=== PATIENT | female | born 1990 | race African-American/Black ===

== ENCOUNTER 2017-04-28 00:55 | Inpatient (IN) | payer BC ==
[2017-04-28] MEDS ORDERED: Butorphanol 1 MG/ML SDV IVPUSH PRN (01:21)
[2017-04-28] MEDS ORDERED: Water For Irrigation,Sterile 1,000 ML Container IRR PRN (01:21)
[2017-04-28] MEDS ORDERED: Lidocaine 1% 50 ML MDV INJECT PRN (01:21)
[2017-04-28] MEDS ORDERED: Nalbuphine 10 MG/1 ML Vial IVPUSH PRN (01:21)
[2017-04-28] MEDS ORDERED: Carboprost Tromethamine 250 MCG/1 ML Amp IM PRN (01:21)
[2017-04-28] MEDS ORDERED: Sodium Chloride 0.9% 2.5 ML Syringe FLUSH PRN (01:21)
[2017-04-28] MEDS ORDERED: Misoprostol 200 MCG Tab PO PRN (01:21)
[2017-04-28] MEDS ORDERED: Methylergonovine 0.2 MG/1 ML Amp IM PRN (01:21)
[2017-04-28] MEDS ORDERED: Sodium Chloride 0.9% 10 ML Syringe FLUSH PRN (01:21)
[2017-04-28] MEDS ORDERED: Terbutaline 1 MG/ML SDV SUBCUT PRN (01:23)
[2017-04-28] MEDS ORDERED: Misoprostol 25 MCG (1/4 of 100 MCG) Tab VAG PRN (01:23)
[2017-04-28] MEDS ORDERED: Misoprostol 25 MCG (1/4 of 100 MCG) Tab PO ONE (01:25)
[2017-04-28] MEDS ORDERED: Misoprostol 25 MCG (1/4 of 100 MCG) Tab VAG SCH (01:30)
[2017-04-28] MEDS: Lactated Ringers 1,000 ML IV SCH ×4 (08:24→23:00)
--- NOTE | 2017-04-28 08:27 | PCM.LDHP ---
L&D History of Present Illness - General Date of Service: 04/28/17 Admit Problem/Dx: Patient Status Order with Admit Dx/Problem 04/28/17 01:21 Patient Status [ADT] Routine Admission Diagnosis/Problem Admission Diagnosis/Problem 04/28/17 08:22 26yo EDC 05/02/2017 39 4/7wks B+, RI, GBS neg, Hep B pos chronic. IOL Source of Information: Patient History Limitations: Reports: No Limitations - History of Present Illness Improves with: Reports: None Worsens with: Reports: None Associated Symptoms: Reports: N - Related Data Allergies/Adverse Reactions: Allergies Allergy/AdvReac Type Severity Reaction Status Date / Time No Known Allergies Allergy Verified 12/22/14 22:08 Home Medications: Home Meds Ibuprofen [Motrin] 800 mg PO Q6H #60 tablet 10/20/15 [Rx] Past Medical History - Past Health History Medical/Surgical History: Denies Medical/Surgical History Cardiovascular History: Reports: Other (See Below) Other Cardiovascular History: heart disease pt does not know what type possible "fast heart rate at times" Other OB/BYN History: breech, arrives having contractions, will await arrival of middleware developer to hear if the plan is to continue with scheduled attempt at version, or to preceed with a C section. - Infectious Disease History Infectious Disease History: Reports: Chicken Pox, Hepatitis B, Mumps Social & Family History - Tobacco Use Smoking Status *Q: Never Smoker Second Hand Smoke Exposure: No - Caffeine Use Caffeine Use: Reports: None - Recreational Drug Use Recreational Drug Use: No H&P Review of Systems - Review of Systems: Review Of Systems: See Below General: Reports: No Symptoms HEENT: Reports: No Symptoms Pulmonary: Reports: No Symptoms Cardiovascular: Reports: No Symptoms Gastrointestinal: Reports: No Symptoms Genitourinary: Reports: No Symptoms Musculoskeletal: Reports: No Symptoms Skin: Reports: No Symptoms Psychiatric: Reports: No Symptoms Neurological: Reports: No Symptoms Hematologic/Lymphatic: Reports: No Symptoms Immunologic: Reports: No Symptoms L&D Exam - Exam Exam: See Below - Vital Signs Weight: 122.47 kg - Nunez Score Nunez Score Cervix Position: Anterior Nunez Score Consistency: Soft Nunez Score Effacement: 51-70% Nunez Score Dilation: 3-4 cm Nunez Score Infant's Station: -2 Nunez Score Total: 9 - Exam General: Alert, Oriented, Cooperative HEENT: Hearing Intact Lungs: Normal Respiratory Effort GI/Abdominal Exam: Soft, Non-Tender, No Organomegaly (gravid) Rectal Exam: Deferred Genitourinary: Normal external exam, Normal bimanual exam, Cervical dilitation Back Exam: Full Range of Motion Extremities: Normal Range of Motion, Non-Tender, No Pedal Edema, Normal Capillary Refill Skin: Warm, Dry, Intact Neurological: Reflexes Equal Bilateral, Normal Speech, Normal Tone Psychiatric: Alert, Normal Affect, Normal Mood - Patient Data Lab Results Last 24 hrs: Laboratory Results - last 24 hr 04/28/17 04/28/17 Range/Units 01:40 01:40 WBC 5.63 (4.0-11.0) K/uL RBC 3.71 L (4.30-5.90) M/uL Hgb 10.0 L (12.0-16.0) g/dL Hct 30.5 L (36.0-46.0) % MCV 82.2 (80.0-98.0) fL MCH 27.0 (27.0-32.0) pg MCHC 32.8 (31.0-37.0) g/dL RDW Std Deviation 39.1 (28.0-62.0) fl RDW Coeff of Delmer 13 (11.0-15.0) % Plt Count 243 (150-400) K/uL MPV 9.60 (7.40-12.00) fL Nucleated RBC % 0.0 /100WBC Nucleated RBCs # 0 K/uL Blood Type B POSITIVE Antibody Screen NEGATIVE Result Diagrams: 04/28/17 01:40 - Problem List (1) Supervision of normal IUP (intrauterine ) in multigravida SNOMED Code(s): 956097775, 097239639 ICD Code: Z34.80 - ENCOUNTER FOR SUPRVSN OF NORMAL , UNSP TRIMESTER Status: Acute Priority: High Current Visit: Yes Qualifiers: Trimester: third trimester Qualified Code(s): Z34.83 - Encounter for supervision of other normal , third trimester (2) Chronic hepatitis B affecting antepartum care of mother in third trimester SNOMED Code(s): 545267781 ICD Code: O98.413 - VIRAL HEPATITIS COMPLICATING , THIRD TRIMESTER; B18.1 - CHRONIC VIRAL HEPATITIS B WITHOUT DELTA-AGENT Status: Acute Priority : High Current Visit: Yes Problem List Initiated/Reviewed/Updated: Yes Orders Last 24hrs: Active Orders 24 hr Category Date Time Status Patient Status [ADT] Routine ADT 04/28/17 01:21 Active Bedrest Bathroom Privileges [RC] ASDIRECTED Care 04/28/17 01:23 Active Communication Order [RC] ASDIRECTED Care 04/28/17 01:23 Active Communication Order [RC] ASDIRECTED Care 04/28/17 01:23 Active Communication Order [RC] ASDIRECTED Care 04/28/17 01:23 Active Heart Tones [RC] CONTINUOUS Care 04/28/17 01:21 Active Non Stress Test [RC] PER UNIT ROUTINE Care 04/28/17 01:21 Active May Shower [RC] ASDIRECTED Care 04/28/17 01:21 Active Notify Provider [RC] PRN Care 04/28/17 01:21 Active Notify Provider [RC] PRN Care 04/28/17 01:23 Active Notify Provider [RC] PRN Care 04/28/17 01:23 Active Notify Provider [RC] STAT Care 04/28/17 01:23 Active Oxygen Therapy [RC] ASDIRECTED Care 04/28/17 01:23 Active Up ad Roma [RC] ASDIRECTED Care 04/28/17 01:21 Active Vaginal Exam [RC] PRN Care 04/28/17 01:21 Active Vaginal Exam [RC] PRN Care 04/28/17 01:23 Active Vital Signs [RC] PER UNIT ROUTINE Care 04/28/17 01:21 Active Vital Signs [RC] PER UNIT ROUTINE Care 04/28/17 01:23 Active Clear Liquid Diet [DIET] Diet 04/28/17 Breakfast Active Butorphanol [Stadol] Med 04/28/17 01:21 Active 1 mg IVPUSH Q1H PRN Carboprost Tromethamine [Hemabate DS] Med 04/28/17 01:21 Active 250 mcg IM ASDIRECTED PRN Lactated Ringers [Ringers, Lactated] 1,000 ml Med 04/28/17 01:30 Active IV ASDIRECTED Lidocaine 1% [Xylocaine 1%] Med 04/28/17 01:21 Active 50 ml INJECT .ONCE PRN Methylergonovine [Methergine] Med 04/28/17 01:21 Active 0.2 mg IM ASDIRECTED PRN Misoprostol [Cytotec] Med 04/28/17 01:21 Active 200 mcg PO .ONCE PRN Misoprostol [Cytotec] Med 04/28/17 01:30 Active 25 mcg VAG .ONCE Misoprostol [Cytotec] Med 04/28/17 01:23 Active 25 mcg VAG Q4H PRN Nalbuphine [Nubain] Med 04/28/17 01:21 Active 10 mg IVPUSH Q1H PRN Sodium Chloride 0.9% [Saline Flush] Med 04/28/17 01:21 Active 10 ml FLUSH ASDIRECTED PRN Sodium Chloride 0.9% [Saline Flush] Med 04/28/17 01:21 Active 2.5 ml FLUSH ASDIRECTED PRN Terbutaline [Brethine] Med 04/28/17 01:23 Active 0.25 mg SUBCUT ASDIRECTED PRN Water For Irrigation,Sterile [Sterile Water for Med 04/28/17 01:21 Active Irrigation] 1,000 ml IRR ASDIRECTED PRN Scalp Electrode [WOMSER] Per Unit Routine Oth 04/28/17 01:21 Ordered Medication Administration Instruction [OM.PC] Q3H Oth 04/28/17 01:30 Ordered Peripheral IV Insertion Adult [OM.PC] Routine Oth 04/28/17 01:21 Ordered Resuscitation Status Routine Resus Stat 04/28/17 01:21 Ordered Medication Orders Butorphanol Tartrate (Stadol) 1 mg IVPUSH Q1H PRN PRN Reason: Pain Carboprost Tromethamine (Hemabate Ds) 250 mcg IM ASDIRECTED PRN PRN Reason: Post Hemorrhage Lactated Ringer's (Ringers, Lactated) 1,000 mls @ 150 mls/hr IV ASDIRECTED ARABELLA Lidocaine HCl (Xylocaine 1%) 50 ml INJECT .ONCE PRN PRN Reason: Laceration repair Methylergonovine Maleate (Methergine) 0.2 mg IM ASDIRECTED PRN PRN Reason: Post Hemorrhage Misoprostol (Cytotec) 200 mcg PO .ONCE PRN PRN Reason: Post Hemorrhage Misoprostol (Cytotec) 25 mcg VAG .ONCE ARABELLA Last Admin: 04/28/17 02:42 Dose: 25 mcg Misoprostol (Cytotec) 25 mcg VAG Q4H PRN PRN Reason: Cervical Ripening Nalbuphine HCl (Nubain) 10 mg IVPUSH Q1H PRN PRN Reason: Pain (severe 7-10) Sodium Chloride (Saline Flush) 10 ml FLUSH ASDIRECTED PRN PRN Reason: Keep Vein Open Sodium Chloride (Saline Flush) 2.5 ml FLUSH ASDIRECTED PRN PRN Reason: Keep Vein Open Sterile Water (Sterile Water For Irrigation) 1,000 ml IRR ASDIRECTED PRN PRN Reason: delivery Terbutaline Sulfate (Brethine) 0.25 mg SUBCUT ASDIRECTED PRN PRN Reason: Tacysystole Assessment/Plan Comment:: IOL A: 26yo EDC 05/02/2017 39 4/7wks B+, RI, GBS neg, Hep B pos chronic. IOL P: Admit to L&D, epidural prn, Dr León (Peds) updated on Hep B chronic status, anticipate . Dr Freeman updated on pt status.
[2017-04-28] MEDS ORDERED: Ropivacaine HCl/PF 100 ML ONE ×2 (08:42→19:01)
[2017-04-28] MEDS ORDERED: Ropivacaine 0.2% 2 MG/ML 20 ML SDV ONE (08:42)
[2017-04-28] MEDS ORDERED: fentaNYL 100 MCG/2 ML SDV ONE ×3 (08:43→21:13)
--- NOTE | 2017-04-28 09:30 | PCM.PREANE ---
Preanesthetic Assessment - Anesthesia/Transfusion/Family Hx Anesthesia History: Prior Anesthesia Without Reaction Family History of Anesthesia Reaction: No Transfusion History: No Prior Transfusion(s) - Review of Systems General: No Symptoms Pulmonary: No Symptoms Cardiovascular: No Symptoms Gastrointestinal: No Symptoms Neurological: No Symptoms Other: Reports: None - Physical Assessment Height: 1.63 m Weight: 122.47 kg ASA Class: 2 Mental Status: Alert & Oriented x3 Airway Class: Mallampati = 3 Dentition: Reports: Normal Dentition - Lab Values: Laboratory Last Values WBC 5.63 K/uL (4.0-11.0) 04/28/17 01:40 RBC 3.71 M/uL (4.30-5.90) L 04/28/17 01:40 Hgb 10.0 g/dL (12.0-16.0) L 04/28/17 01:40 Hct 30.5 % (36.0-46.0) L 04/28/17 01:40 MCV 82.2 fL (80.0-98.0) 04/28/17 01:40 MCH 27.0 pg (27.0-32.0) 04/28/17 01:40 MCHC 32.8 g/dL (31.0-37.0) 04/28/17 01:40 RDW Std Deviation 39.1 fl (28.0-62.0) 04/28/17 01:40 RDW Coeff of Delmer 13 % (11.0-15.0) 04/28/17 01:40 Plt Count 243 K/uL (150-400) 04/28/17 01:40 MPV 9.60 fL (7.40-12.00) 04/28/17 01:40 Nucleated RBC % 0.0 /100WBC 04/28/17 01:40 Nucleated RBCs # 0 K/uL 04/28/17 01:40 Blood Type B POSITIVE 04/28/17 01:40 Antibody Screen NEGATIVE 04/28/17 01:40 - Allergies Allergies/Adverse Reactions: Allergies Allergy/AdvReac Type Severity Reaction Status Date / Time No Known Allergies Allergy Verified 12/22/14 22:08 - Acknowledgements Anesthesia Type Planned: Epidural Pt an Appropriate Candidate for the Planned Anesthesia: Yes Alternatives and Risks of Anesthesia Discussed w Pt/Guardian: Yes Pt/Guardian Understands and Agrees with Anesthesia Plan: Yes PreAnesthesia Questionnaire - Past Health History Medical/Surgical History: Denies Medical/Surgical History Cardiovascular History: Reports: Other (See Below) Other Cardiovascular History: heart disease pt does not know what type possible "fast heart rate at times" Other OB/BYN History: breech, arrives having contractions, will await arrival of conduit reamer operator to hear if the plan is to continue with scheduled attempt at version, or to preceed with a C section. - Infectious Disease History Infectious Disease History: Reports: Chicken Pox, Hepatitis B, Mumps - SUBSTANCE USE Smoking Status *Q: Never Smoker Second Hand Smoke Exposure: No Recreational Drug Use History: No - HOME MEDS Home Medications: Home Meds Ibuprofen [Motrin] 800 mg PO Q6H #60 tablet 10/20/15 [Rx] - CURRENT (IN HOUSE) MEDS Current Meds: Current Medications Butorphanol Tartrate (Stadol) 1 mg IVPUSH Q1H PRN PRN Reason: Pain Carboprost Tromethamine (Hemabate Ds) 250 mcg IM ASDIRECTED PRN PRN Reason: Post Hemorrhage Lactated Ringer's (Ringers, Lactated) 1,000 mls @ 150 mls/hr IV ASDIRECTED [facility] Last Admin: 04/28/17 09:03 Dose: 150 mls/hr Lidocaine HCl (Xylocaine 1%) 50 ml INJECT .ONCE PRN PRN Reason: Laceration repair Methylergonovine Maleate (Methergine) 0.2 mg IM ASDIRECTED PRN PRN Reason: Post Hemorrhage Misoprostol (Cytotec) 200 mcg PO .ONCE PRN PRN Reason: Post Hemorrhage Misoprostol (Cytotec) 25 mcg VAG .ONCE ARABELLA Last Admin: 04/28/17 02:42 Dose: 25 mcg Misoprostol (Cytotec) 25 mcg VAG Q4H PRN PRN Reason: Cervical Ripening Nalbuphine HCl (Nubain) 10 mg IVPUSH Q1H PRN PRN Reason: Pain (severe 7-10) Sodium Chloride (Saline Flush) 10 ml FLUSH ASDIRECTED PRN PRN Reason: Keep Vein Open Sodium Chloride (Saline Flush) 2.5 ml FLUSH ASDIRECTED PRN PRN Reason: Keep Vein Open Sterile Water (Sterile Water For Irrigation) 1,000 ml IRR ASDIRECTED PRN PRN Reason: delivery Terbutaline Sulfate (Brethine) 0.25 mg SUBCUT ASDIRECTED PRN PRN Reason: Tacysystole Discontinued Medications Fentanyl (Sublimaze) Confirm Administered Dose 300 mcg .ROUTE .STK-MED ONE Stop: 04/28/17 08:44 Ropivacaine (Naropin 0.2%) Confirm Administered Dose 100 mls @ as directed .ROUTE .STK-MED ONE Stop: 04/28/17 08:43 Misoprostol (Cytotec) 25 mcg PO ONETIME ONE Stop: 04/28/17 01:26 Last Admin: 04/28/17 02:39 Dose: 25 mcg Ropivacaine (Naropin 0.2%) Confirm Administered Dose 20 ml .ROUTE .STK-MED ONE Stop: 04/28/17 08:43
[2017-04-28] MEDS ORDERED: Oxytocin/0.9 % Sodium Chloride 30 UNIT/500 ML BAG IV SCH (10:15)
[2017-04-28] MEDS ORDERED: Bupivacaine 0.5% 10 ML SDV ONE ×2 (19:06→21:14)
[2017-04-29] MEDS ORDERED: ceFAZolin 2 GM in Premix Bag 1 BAG IV ONE (01:57)
[2017-04-29] MEDS ORDERED: Citric Acid/Sodium Citrate Solution 30 ML Cup PO SCH (02:00)
[2017-04-29] MEDS ORDERED: Lactated Ringers 1,000 ML IV SCH ×2 (02:00→03:00)
[2017-04-29] MEDS ORDERED: Bupivacaine 0.5% 10 ML SDV ONE (02:00)
[2017-04-29] MEDS ORDERED: Oxytocin/0.9 % Sodium Chloride 30 UNIT/500 ML BAG IV SCH (02:00)
[2017-04-29] MEDS ORDERED: Oxytocin 10 Units/1 ML SDV ONE (02:12)
[2017-04-29] MEDS ORDERED: Ondansetron 4 MG/2 ML SDV ONE (02:12)
[2017-04-29] MEDS ORDERED: Propofol 200 MG/20 ML SDV ONE (02:22)
[2017-04-29] MEDS ORDERED: Morphine PF 10 MG/10 ML SDV ONE (02:28)
[2017-04-29] MEDS ORDERED: Nalbuphine 10 MG/1 ML Vial IVPUSH PRN (02:38)
[2017-04-29] MEDS ORDERED: Acetaminophen/oxyCODONE 325-5 MG Tab PO PRN (02:38)
[2017-04-29] MEDS ORDERED: fentaNYL 100 MCG/2 ML SDV IVPUSH PRN (02:38)
[2017-04-29] MEDS ORDERED: Octyl 2-Cyanoacrylate 1 Tube ONE (02:45)
[2017-04-29] MEDS ORDERED: Ondansetron 4 MG/2 ML SDV IV PRN (02:52)
[2017-04-29] MEDS ORDERED: Lanolin 100% Cream 7 GM Tube TOP PRN (02:52)
[2017-04-29] MEDS ORDERED: Bisacodyl 10 MG Supp RECTAL PRN (02:52)
[2017-04-29] MEDS ORDERED: diphenhydrAMINE 50 MG/ML SDV IVPUSH PRN (02:52)
--- NOTE | 2017-04-29 02:56 | PCM.OPNOTE ---
- General Post-Op/Procedure Note Date of Surgery/Procedure: 04/29/17 Pre Op Diagnosis: IUP 39+4 feliar to progress Post-Op Diagnosis: Same Anesthesia Technique: Epidural Primary Surgeon: Med Freeman Polisher And Buffer: Camelia Harper EBL in mLs: 850 Complications: None Condition: Good
[2017-04-29] MEDS: Ketorolac 30 MG/ML SDV IVPUSH SCH ×4 (03:37→21:55)
--- NOTE | 2017-04-29 03:54 | PCM.POSTAN ---
POST ANESTHESIA ASSESSMENT - MENTAL STATUS Mental Status: Alert, Oriented - RESPIRATORY Respiratory Status: Respiratory Rate WNL, Airway Patent, O2 Saturation Stable - CARDIOVASCULAR CV Status: Pulse Rate WNL, Blood Pressure Stable - GASTROINTESTINAL GI Status: No Symptoms - POST OP HYDRATION Hydration Status: Adequate & Stable
--- NOTE | 2017-04-29 04:29 | OR ---
SURGEON: Med Freeman MD DATE OF PROCEDURE: PREPROCEDURE DIAGNOSIS: Intrauterine at 39+ 4, failed induction due to failure to progress in occiput posterior, possible CPD. POSTOPERATIVE DIAGNOSIS: Intrauterine at 39+ 4, failed induction due to failure to progress in occiput posterior, possible CPD. OPERATION PERFORMED: Primary low transverse section. EXTENSION WORKER: Camelia Harper, certified nurse port warden. ANESTHESIA: Epidural. ESTIMATED BLOOD LOSS: 850 mL. COMPLICATIONS: None. INDICATION: A 26-year-old patient. She is para 1-0-0-1. She is 39+ 3. She is admitted for elective induction. The patient is induced with Cytotec and Pitocin. She responded to it in the early stage of labor very well. She progressed to 8 cm. The patient had epidural anesthesia for labor at 5 cm and then she progressed to 8 cm complete vertex and -3. In spite of adequate contraction with Pitocin stimulation, the patient did not progress beyond that and the presenting part which is the vertex failed to descend farther and stayed at -3. The patient started having some variable and with a late component of deceleration, so a decision was made to do a primary low transverse section. PROCEDURE IN DETAIL: The patient was brought to the OR, properly identified, and after adequate level of epidural anesthesia, the patient prepped and draped in a sterile fashion as usual. Time-out taken and the low transverse Pfannenstiel skin incision was done. Ailin's fascia and rectus fascia were opened in direction of the incision. The 2 recti muscles were and peritoneal cavity was entered. Bladder flap was raised in the usual manner pushing the bladder away from the lower uterine segment. Low transverse uterine incision was done and extended manually and the fetus was in an occiput posterior vertex presentation, delivered without any problem, handed to Dr. León who is the elevator constructor helper who was present at the time for resuscitation. The scores reported to be 8 and 9. The weight is not available. The placenta delivered spontaneous complete and intact and then repair of the lower uterine segment done with 2-0 Vicryl continuous interlocking in 2 layers. Inspection of the lower uterine segment shows no oozing, no bleeding, and then reperitonealization done with 3-0 Vicryl continuous. The peritoneal cavity evacuated completely from all blood and blood clot and closed with 3-0 Vicryl continuous and then the rectus fascia was closed with #1 PDS double strand continuous. The Ailin's fascia closed with 3-0 Vicryl continuous and skin closed with 3-0 Vicryl on a Logan needle in a subcuticular fashion and Dermabond. Instrument and sponge count were correct. The patient tolerated the procedure well and went to the recovery room in stable general condition. KIKE / DOE /[id number]
[2017-04-29] MEDS: Docusate Sodium 100 MG Cap PO SCH ×2 (09:17→21:59)
--- NOTE | 2017-04-29 10:15 | PCM48HPAN ---
Post Anesthesia Note - EVALUATION WITHIN 48HRS OF ANESTHETIC Vital Signs in Normal Range: Yes Patient Participated in Evaluation: Yes Respiratory Function Stable: Yes Airway Patent: Yes Cardiovascular Function Stable: Yes Hydration Status Stable: Yes Pain Control Satisfactory: Yes Nausea and Vomiting Control Satisfactory: Yes Mental Status Recovered: Yes - COMMENTS/OBSERVATIONS Free Text/Narrative:: Pt states that her legs are still slightly numb and she hasn't been out of bed yet. Cautioned to wait until sensation has returned and make sure her nurse is present before trying to get up - pt verbalizes understanding. Pt denies uncontrolled pain or nausea.
[2017-04-30] MEDS: Ketorolac 30 MG/ML SDV IVPUSH SCH (04:03)
[2017-04-30] MEDS: Docusate Sodium 100 MG Cap PO SCH ×2 (08:27→20:52)
[2017-04-30] MEDS: Acetaminophen/oxyCODONE 325-5 MG Tab PO PRN ×3 (08:28→20:53)
[2017-04-30] MEDS: Ferrous Sulfate 325 MG Tab PO SCH ×2 (10:10→20:52)
--- NOTE | 2017-04-30 10:22 | PCM.PNPP ---
- General Info Date of Service: 04/30/17 Admission Dx/Problem (Free Text): Patient Status Order with Admit Dx/Problem 04/28/17 01:21 Patient Status [ADT] Routine Admission Diagnosis/Problem Admission Diagnosis/Problem 04/28/17 08:22 26yo EDC 05/02/2017 39 4/7wks B+, RI, GBS neg, Hep B pos chronic. IOL Functional Status: Reports: Pain Controlled, Tolerating Diet, Ambulating, Urinating - Review of Systems General: Reports: No Symptoms HEENT: Reports: No Symptoms Pulmonary: Reports: No Symptoms Cardiovascular: Reports: No Symptoms Gastrointestinal: Reports: No Symptoms Genitourinary: Reports: No Symptoms Musculoskeletal: Reports: No Symptoms Skin: Reports: No Symptoms Neurological: Reports: No Symptoms Psychiatric: Reports: No Symptoms - General Info Date of Service: 04/30/17 - Patient Data Vital Signs - Most Recent: Last Vital Signs Temp 36.7 C 04/30/17 08:15 Pulse 80 04/30/17 08:15 Resp 20 04/30/17 08:15 BP 111/65 04/30/17 08:15 Pulse Ox 99 04/30/17 08:15 Weight - Most Recent: 122.47 kg I&O - Last 24 Hours: Intake & Output 04/29/17 04/30/17 04/30/17 22:59 06:59 14:59 Intake Total 750 Output Total 950 250 Balance -200 -250 Lab Results - Last 24 Hours: Laboratory Results - last 24 hr 04/30/17 Range/Units 05:46 Hgb 7.4 L (12.0-16.0) g/dL Hct 22.7 L (36.0-46.0) % Med Orders - Current: Current Medications Bisacodyl (Dulcolax) 10 mg RECTAL .ONCE PRN PRN Reason: Constipation Butorphanol Tartrate (Stadol) 1 mg IVPUSH Q1H PRN PRN Reason: Pain Carboprost Tromethamine (Hemabate Ds) 250 mcg IM ASDIRECTED PRN PRN Reason: Post Hemorrhage Citric Acid/Sodium Citrate (Bicitra Solution) 30 ml PO .ONCE ARABELLA Diphenhydramine HCl (Benadryl) 25 mg IVPUSH Q6H PRN PRN Reason: Itching or Nausea Docusate Sodium (Colace) 100 mg PO BID [facility] Last Admin: 04/30/17 08:27 Dose: 100 mg Emollient Ointment (Lansinoh Hpa) 0 gm TOP ASDIRECTED PRN PRN Reason: Sore Nipples Ferrous Sulfate (Ferrous Sulfate) 325 mg PO BID [facility] Last Admin: 04/30/17 10:10 Dose: 325 mg Lactated Ringer's (Ringers, Lactated) 1,000 mls @ 150 mls/hr IV ASDIRECTED [facility] Last Admin: 04/28/17 23:00 Dose: 150 mls/hr Oxytocin/Sodium Chloride (Oxytocin 30 Unit/500 Ml-Ns) 30 unit in 500 mls @ 2 mls/hr IV TITRATE ARABELLA; 2 MUNITS/MIN PRN Reason: Protocol Last Titration: 04/29/17 00:45 Dose: 0 munits/min, 0 mls/hr Oxytocin/Sodium Chloride (Oxytocin 30 Unit/500 Ml-Ns) 30 unit in 500 mls @ 250 mls/hr IV TITRATE [facility] Lactated Ringer's (Ringers, Lactated) 1,000 mls @ 500 mls/hr IV .BOLUS ARABELLA Lactated Ringer's (Ringers, Lactated) 1,000 mls @ 125 mls/hr IV ASDIRECTED [facility] Ibuprofen (Motrin) 800 mg PO Q8H PRN PRN Reason: mild pain or fever Lidocaine HCl (Xylocaine 1%) 50 ml INJECT .ONCE PRN PRN Reason: Laceration repair Methylergonovine Maleate (Methergine) 0.2 mg IM ASDIRECTED PRN PRN Reason: Post Hemorrhage Misoprostol (Cytotec) 200 mcg PO .ONCE PRN PRN Reason: Post Hemorrhage Misoprostol (Cytotec) 25 mcg VAG .ONCE [facility] Last Admin: 04/28/17 02:42 Dose: 25 mcg Misoprostol (Cytotec) 25 mcg VAG Q4H PRN PRN Reason: Cervical Ripening Nalbuphine HCl (Nubain) 10 mg IVPUSH Q1H PRN PRN Reason: Pain (severe 7-10) Ondansetron HCl (Zofran) 4 mg IV Q4H PRN PRN Reason: Nausea/Vomiting Oxycodone/Acetaminophen (Percocet 325-5 Mg) 1 tab PO ONETIME PRN PRN Reason: Pain (moderate 4-6) Last Admin: 04/29/17 23:33 Dose: 1 tab Oxycodone/Acetaminophen (Percocet 325-5 Mg) 1 tab PO Q4H PRN PRN Reason: Pain (moderate 4-6) Oxycodone/Acetaminophen (Percocet 325-5 Mg) 2 tab PO Q4H PRN PRN Reason: Pain (moderate 4-6) Last Admin: 04/30/17 08:28 Dose: 2 tab Sodium Chloride (Saline Flush) 10 ml FLUSH ASDIRECTED PRN PRN Reason: Keep Vein Open Sodium Chloride (Saline Flush) 2.5 ml FLUSH ASDIRECTED PRN PRN Reason: Keep Vein Open Sterile Water (Sterile Water For Irrigation) 1,000 ml IRR ASDIRECTED PRN PRN Reason: delivery Terbutaline Sulfate (Brethine) 0.25 mg SUBCUT ASDIRECTED PRN PRN Reason: Tacysystole Discontinued Medications Bupivacaine HCl (Sensorcaine-Mpf 0.5%) Confirm Administered Dose 10 ml .ROUTE .STK-MED ONE Stop: 04/28/17 19:07 Last Admin: 04/29/17 09:09 Dose: Not Given Bupivacaine HCl (Sensorcaine-Mpf 0.5%) Confirm Administered Dose 10 ml .ROUTE .STK-MED ONE Stop: 04/28/17 21:15 Last Admin: 04/29/17 09:09 Dose: Not Given Bupivacaine HCl (Sensorcaine-Mpf 0.5%) Confirm Administered Dose 20 ml .ROUTE .STK-MED ONE Stop: 04/29/17 02:01 Last Admin: 04/29/17 09:10 Dose: Not Given Fentanyl (Sublimaze) Confirm Administered Dose 300 mcg .ROUTE .STK-MED ONE Stop: 04/28/17 08:44 Last Admin: 04/29/17 09:08 Dose: Not Given Fentanyl (Sublimaze) Confirm Administered Dose 100 mcg .ROUTE .STK-MED ONE Stop: 04/28/17 19:07 Last Admin: 04/29/17 09:09 Dose: Not Given Fentanyl (Sublimaze) Confirm Administered Dose 100 mcg .ROUTE .STK-MED ONE Stop: 04/28/17 21:14 Last Admin: 04/29/17 09:09 Dose: Not Given Fentanyl (Sublimaze) 50 mcg IVPUSH Q5M PRN PRN Reason: Pain (severe 7-10) Stop: 04/30/17 02:38 Ropivacaine (Naropin 0.2%) Confirm Administered Dose 100 mls @ as directed .ROUTE .STK-MED ONE Stop: 04/28/17 08:43 Last Admin: 04/29/17 09:08 Dose: Not Given Ropivacaine (Naropin 0.2%) Confirm Administered Dose 100 mls @ as directed .ROUTE .STK-MED ONE Stop: 04/28/17 19:02 Last Admin: 04/29/17 09:09 Dose: Not Given Cefazolin Sodium/Dextrose 2 gm (/ Premix) 50 mls @ 100 mls/hr IV ONETIME ONE Stop: 04/29/17 02:26 Last Admin: 04/29/17 09:09 Dose: Not Given Ketorolac Tromethamine (Toradol) 30 mg IVPUSH Q6H ARABELLA Stop: 04/30/17 03:01 Last Admin: 04/30/17 04:03 Dose: 30 mg Misoprostol (Cytotec) 25 mcg PO ONETIME ONE Stop: 04/28/17 01:26 Last Admin: 04/28/17 02:39 Dose: 25 mcg Morphine Sulfate (Duramorph Pf) Confirm Administered Dose 10 mg .ROUTE .STK-MED ONE Stop: 04/29/17 02:29 Nalbuphine HCl (Nubain) 2.5 mg IVPUSH Q3H PRN PRN Reason: Pruritis Stop: 04/30/17 02:38 Octyl Cyanoacrylate (Dermabond Advance) Confirm Administered Dose 1 applic .ROUTE .STK-MED ONE Stop: 04/29/17 02:46 Ondansetron HCl (Zofran) Confirm Administered Dose 4 mg .ROUTE .STK-MED ONE Stop: 04/29/17 02:13 Oxytocin (Pitocin) Confirm Administered Dose 20 unit .ROUTE .STK-MED ONE Stop: 04/29/17 02:13 Propofol (Diprivan 20 Ml) Confirm Administered Dose 200 mg .ROUTE .STK-MED ONE Stop: 04/29/17 02:23 Ropivacaine (Naropin 0.2%) Confirm Administered Dose 20 ml .ROUTE .STK-MED ONE Stop: 04/28/17 08:43 Last Admin: 04/29/17 09:08 Dose: Not Given - Interaction Infant Disposition, : [place] in Room with Family Infant Interaction: Holding Infant Support Person: - Recovery Exam Fundal Tone: Firm Fundal Level: 1 Fingerbreadths Below Umbilicus Fundal Placement: Midline Lochia Amount: Scant Lochia Color: Rubra/Red Perineum Description: Intact, Minimal Bruising/Swelling Episiotomy/Laceration: None Bladder Status: Voiding Urinary Elimination: Indwelling Catheter - Exam General: Alert, Oriented, Cooperative, No Acute Distress Lungs: Clear to Auscultation, Normal Respiratory Effort Cardiovascular: Regular Rate, Regular Rhythm GI/Abdominal Exam: Soft, Non-Tender, No Organomegaly Extremities: Normal Range of Motion, Non-Tender, No Pedal Edema, Normal Capillary Refill Skin: Warm, Dry, Intact Wound/Incisions: Healing Well Neurological: No New Focal Deficit, Normal Speech, Normal Tone Psy/Mental Status: Alert, Normal Affect, Normal Mood - Problem List & Annotations (1) Supervision of normal IUP (intrauterine ) in multigravida SNOMED Code(s): 955083705, 968378871 Code(s): Z34.80 - ENCOUNTER FOR SUPRVSN OF NORMAL , UNSP TRIMESTER Status: Acute Priority: High Current Visit: Yes Qualifiers: Trimester: third trimester Qualified Code(s): Z34.83 - Encounter for supervision of other normal , third trimester (2) Chronic hepatitis B affecting antepartum care of mother in third trimester SNOMED Code(s): 737722310 Code(s): O98.413 - VIRAL HEPATITIS COMPLICATING , THIRD TRIMESTER; B18.1 - CHRONIC VIRAL HEPATITIS B WITHOUT DELTA-AGENT Status: Acute Priority : High Current Visit: Yes (3) delivery delivered SNOMED Code(s): 140748257 Code(s): O82 - ENCOUNTER FOR DELIVERY WITHOUT INDICATION Status: Acute Priority: High Current Visit: Yes - Problem List Review Problem List Initiated/Reviewed/Updated: Yes - My Orders Last 24 Hours: My Active Orders 04/30/17 10:00 Ferrous Sulfate 325 mg PO BID - Assessment Assessment:: PP day 1 PCS due to FTP and NRFHT, VSS, AF, Incision healing well no drainage or erythema. Stable - Plan Plan:: IOL A: 26yo EDC 05/02/2017 39 4/7wks B+, RI, GBS neg, Hep B pos chronic. IOL P: Admit to L&D, epidural prn, Dr León (Peds) updated on Hep B chronic status, anticipate . Dr Freeman updated on pt status. PP day 1 Continue pp plan of care
[2017-04-30] MEDS: Ibuprofen 800 MG Tab PO PRN ×2 (12:30→20:52)
[2017-05-01] MEDS: Acetaminophen/oxyCODONE 325-5 MG Tab PO PRN ×3 (00:57→08:09)
[2017-05-01] MEDS: Ibuprofen 800 MG Tab PO PRN (04:50)
--- NOTE | 2017-05-01 08:25 | PCM.DCSUM1 ---
Discharge Summary - Hospital Course Free Text/Narrative:: Discharge home with infant. Follow up 10 days for incision check and 6 weeks for post visit or sooner if needed. - Discharge Data Discharge Date: 05/01/17 Discharge Disposition: Home, Self-Care 01 Condition: Good - Discharge Diagnosis/Problem(s) (1) Supervision of normal IUP (intrauterine ) in multigravida SNOMED Code(s): 156809108, 415698585 ICD Code: Z34.80 - ENCOUNTER FOR SUPRVSN OF NORMAL , UNSP TRIMESTER Status: Acute Priority: High Current Visit: Yes Qualifiers: Trimester: third trimester Qualified Code(s): Z34.83 - Encounter for supervision of other normal , third trimester (2) Chronic hepatitis B affecting antepartum care of mother in third trimester SNOMED Code(s): 662352846 ICD Code: O98.413 - VIRAL HEPATITIS COMPLICATING , THIRD TRIMESTER; B18.1 - CHRONIC VIRAL HEPATITIS B WITHOUT DELTA-AGENT Status: Acute Priority : High Current Visit: Yes (3) delivery delivered SNOMED Code(s): 137832530 ICD Code: O82 - ENCOUNTER FOR DELIVERY WITHOUT INDICATION Status: Acute Priority: High Current Visit: Yes - Patient Instructions Diet: Usual Diet as Tolerated Activity: As Tolerated, Rest and Relax Today Driving: May Drive Today Showering/Bathing: May Shower Notify Provider of: Fever, Increased Pain, Swelling and Redness, Nausea and/or Vomiting Other/Special Instructions: Discharge home with infant. Follow up 10 days for incision check and 6 weeks for post visit or sooner if needed. - Discharge Plan Home Medications: Home Meds Ibuprofen [Motrin] 800 mg PO Q6H #60 tablet 10/20/15 [Rx] Referrals: [facility] [Outside] Med Freeman MD [Physician] - (1 week- May 08 @ 3:00pm w/ Dr. Freeman week- June 10 @ 1:30pm w/ Dr. Freeman) - General Info Date of Service: 05/01/17 Admission Dx/Problem (Free Text: Patient Status Order with Admit Dx/Problem 04/28/17 01:21 Patient Status [ADT] Routine Admission Diagnosis/Problem Admission Diagnosis/Problem 04/28/17 08:22 26yo EDC 05/02/2017 39 4/7wks B+, RI, GBS neg, Hep B pos chronic. IOL Functional Status: Reports: Pain Controlled, Tolerating Diet, Ambulating, Urinating - Review of Systems General: Reports: No Symptoms HEENT: Reports: No Symptoms Pulmonary: Reports: No Symptoms Cardiovascular: Reports: No Symptoms Gastrointestinal: Reports: No Symptoms Genitourinary: Reports: No Symptoms Musculoskeletal: Reports: No Symptoms Skin: Reports: No Symptoms Neurological: Reports: No Symptoms Psychiatric: Reports: No Symptoms - Patient Data Vitals - Most Recent: Last Vital Signs Temp 36.4 C 05/01/17 04:42 Pulse 87 05/01/17 04:42 Resp 14 05/01/17 04:42 BP 109/66 05/01/17 04:42 Pulse Ox 99 05/01/17 04:42 Weight - Most Recent: 122.47 kg Med Orders - Current: Current Medications Bisacodyl (Dulcolax) 10 mg RECTAL .ONCE PRN PRN Reason: Constipation Butorphanol Tartrate (Stadol) 1 mg IVPUSH Q1H PRN PRN Reason: Pain Carboprost Tromethamine (Hemabate Ds) 250 mcg IM ASDIRECTED PRN PRN Reason: Post Hemorrhage Citric Acid/Sodium Citrate (Bicitra Solution) 30 ml PO .ONCE ARABELLA Diphenhydramine HCl (Benadryl) 25 mg IVPUSH Q6H PRN PRN Reason: Itching or Nausea Docusate Sodium (Colace) 100 mg PO BID [facility] Last Admin: 04/30/17 20:52 Dose: 100 mg Emollient Ointment (Lansinoh Hpa) 0 gm TOP ASDIRECTED PRN PRN Reason: Sore Nipples Ferrous Sulfate (Ferrous Sulfate) 325 mg PO BID [facility] Last Admin: 04/30/17 20:52 Dose: 325 mg Lactated Ringer's (Ringers, Lactated) 1,000 mls @ 150 mls/hr IV ASDIRECTED [facility] Last Admin: 04/28/17 23:00 Dose: 150 mls/hr Oxytocin/Sodium Chloride (Oxytocin 30 Unit/500 Ml-Ns) 30 unit in 500 mls @ 2 mls/hr IV TITRATE ARABELLA; 2 MUNITS/MIN PRN Reason: Protocol Last Titration: 04/29/17 00:45 Dose: 0 munits/min, 0 mls/hr Oxytocin/Sodium Chloride (Oxytocin 30 Unit/500 Ml-Ns) 30 unit in 500 mls @ 250 mls/hr IV TITRATE [facility] Lactated Ringer's (Ringers, Lactated) 1,000 mls @ 500 mls/hr IV .BOLUS ARABELLA Lactated Ringer's (Ringers, Lactated) 1,000 mls @ 125 mls/hr IV ASDIRECTED [facility] Ibuprofen (Motrin) 800 mg PO Q8H PRN PRN Reason: mild pain or fever Last Admin: 05/01/17 04:50 Dose: 800 mg Lidocaine HCl (Xylocaine 1%) 50 ml INJECT .ONCE PRN PRN Reason: Laceration repair Methylergonovine Maleate (Methergine) 0.2 mg IM ASDIRECTED PRN PRN Reason: Post Hemorrhage Misoprostol (Cytotec) 200 mcg PO .ONCE PRN PRN Reason: Post Hemorrhage Misoprostol (Cytotec) 25 mcg VAG .ONCE ARABELLA Last Admin: 04/28/17 02:42 Dose: 25 mcg Misoprostol (Cytotec) 25 mcg VAG Q4H PRN PRN Reason: Cervical Ripening Nalbuphine HCl (Nubain) 10 mg IVPUSH Q1H PRN PRN Reason: Pain (severe 7-10) Ondansetron HCl (Zofran) 4 mg IV Q4H PRN PRN Reason: Nausea/Vomiting Oxycodone/Acetaminophen (Percocet 325-5 Mg) 1 tab PO ONETIME PRN PRN Reason: Pain (moderate 4-6) Last Admin: 04/29/17 23:33 Dose: 1 tab Oxycodone/Acetaminophen (Percocet 325-5 Mg) 1 tab PO Q4H PRN PRN Reason: Pain (moderate 4-6) Last Admin: 05/01/17 08:09 Dose: 1 tab Oxycodone/Acetaminophen (Percocet 325-5 Mg) 2 tab PO Q4H PRN PRN Reason: Pain (moderate 4-6) Last Admin: 04/30/17 16:02 Dose: 2 tab Sodium Chloride (Saline Flush) 10 ml FLUSH ASDIRECTED PRN PRN Reason: Keep Vein Open Sodium Chloride (Saline Flush) 2.5 ml FLUSH ASDIRECTED PRN PRN Reason: Keep Vein Open Sterile Water (Sterile Water For Irrigation) 1,000 ml IRR ASDIRECTED PRN PRN Reason: delivery Terbutaline Sulfate (Brethine) 0.25 mg SUBCUT ASDIRECTED PRN PRN Reason: Tacysystole Discontinued Medications Bupivacaine HCl (Sensorcaine-Mpf 0.5%) Confirm Administered Dose 10 ml .ROUTE .STK-MED ONE Stop: 04/28/17 19:07 Last Admin: 04/29/17 09:09 Dose: Not Given Bupivacaine HCl (Sensorcaine-Mpf 0.5%) Confirm Administered Dose 10 ml .ROUTE .STK-MED ONE Stop: 04/28/17 21:15 Last Admin: 04/29/17 09:09 Dose: Not Given Bupivacaine HCl (Sensorcaine-Mpf 0.5%) Confirm Administered Dose 20 ml .ROUTE .STK-MED ONE Stop: 04/29/17 02:01 Last Admin: 04/29/17 09:10 Dose: Not Given Fentanyl (Sublimaze) Confirm Administered Dose 300 mcg .ROUTE .STK-MED ONE Stop: 04/28/17 08:44 Last Admin: 04/29/17 09:08 Dose: Not Given Fentanyl (Sublimaze) Confirm Administered Dose 100 mcg .ROUTE .STK-MED ONE Stop: 04/28/17 19:07 Last Admin: 04/29/17 09:09 Dose: Not Given Fentanyl (Sublimaze) Confirm Administered Dose 100 mcg .ROUTE .STK-MED ONE Stop: 04/28/17 21:14 Last Admin: 04/29/17 09:09 Dose: Not Given Fentanyl (Sublimaze) 50 mcg IVPUSH Q5M PRN PRN Reason: Pain (severe 7-10) Stop: 04/30/17 02:38 Ropivacaine (Naropin 0.2%) Confirm Administered Dose 100 mls @ as directed .ROUTE .STK-MED ONE Stop: 04/28/17 08:43 Last Admin: 04/29/17 09:08 Dose: Not Given Ropivacaine (Naropin 0.2%) Confirm Administered Dose 100 mls @ as directed .ROUTE .STK-MED ONE Stop: 04/28/17 19:02 Last Admin: 04/29/17 09:09 Dose: Not Given Cefazolin Sodium/Dextrose 2 gm (/ Premix) 50 mls @ 100 mls/hr IV ONETIME ONE Stop: 04/29/17 02:26 Last Admin: 04/29/17 09:09 Dose: Not Given Ketorolac Tromethamine (Toradol) 30 mg IVPUSH Q6H ARABELLA Stop: 04/30/17 03:01 Last Admin: 04/30/17 04:03 Dose: 30 mg Misoprostol (Cytotec) 25 mcg PO ONETIME ONE Stop: 04/28/17 01:26 Last Admin: 04/28/17 02:39 Dose: 25 mcg Morphine Sulfate (Duramorph Pf) Confirm Administered Dose 10 mg .ROUTE .STK-MED ONE Stop: 04/29/17 02:29 Nalbuphine HCl (Nubain) 2.5 mg IVPUSH Q3H PRN PRN Reason: Pruritis Stop: 04/30/17 02:38 Octyl Cyanoacrylate (Dermabond Advance) Confirm Administered Dose 1 applic .ROUTE .STK-MED ONE Stop: 04/29/17 02:46 Ondansetron HCl (Zofran) Confirm Administered Dose 4 mg .ROUTE .STK-MED ONE Stop: 04/29/17 02:13 Oxytocin (Pitocin) Confirm Administered Dose 20 unit .ROUTE .STK-MED ONE Stop: 04/29/17 02:13 Propofol (Diprivan 20 Ml) Confirm Administered Dose 200 mg .ROUTE .STK-MED ONE Stop: 04/29/17 02:23 Ropivacaine (Naropin 0.2%) Confirm Administered Dose 20 ml .ROUTE .STK-MED ONE Stop: 04/28/17 08:43 Last Admin: 04/29/17 09:08 Dose: Not Given - Exam General: Reports: Alert, Oriented Lungs: Reports: Clear to Auscultation, Normal Respiratory Effort Cardiovascular: Reports: Regular Rate, Regular Rhythm, No Murmurs GI/Abdominal Exam: Soft, Non-Tender, No Organomegaly (Female) Exam: Vaginal Bleeding Rectal (Female) Exam: Deferred Back Exam: Reports: Normal Inspection, Full Range of Motion Extremities: Normal Range of Motion, Non-Tender, No Pedal Edema, Normal Capillary Refill Skin: Reports: Warm, Dry, Intact Wound/Incisions: Reports: Healing Well, No Drainage Neurological: Reports: No New Focal Deficit, Normal Speech, Normal Tone Psy/Mental Status: Reports: Alert, Normal Affect, Normal Mood *Q Meaningful Use (DIS) - VTE *Q VTE Criteria *Q: - Stroke *Q Stroke Criteria *Q: - AMI *Q AMI Criteria *Q:
[2017-05-01 08:43] VITALS: BP 105/59
[2017-05-01] MEDS: Docusate Sodium 100 MG Cap PO SCH (09:30)
[2017-05-01] MEDS: Ferrous Sulfate 325 MG Tab PO SCH (09:30)
== END 2017-05-01 11:25 | disposition home or self-care (01) | DRG 540 ==
LOC: MW.OBCHECK 00:55 → MW.OB 00:59 → MW.OBCHECK 01:21 → MW.OB 01:21 → OBSVTOIN 04-29 01:57 → MW.OB 04-29 02:49
PROVIDERS: ADMIT Obstetrics & Gynecology; ATTEND Obstetrics & Gynecology
PROC: 10D00Z1 Extraction of Products of Conception, Low, Open Approach (ICD-10-PCS; principal; 2017-04-29)
PROC: 10907ZC Drainage of Amniotic Fluid, Therapeutic from Products of Conception, Via Natural or Artificial Opening (ICD-10-PCS; 2017-04-29)
PROC: 3E0P3VZ Introduction of Hormone into Female Reproductive, Percutaneous Approach (ICD-10-PCS; 2017-04-29)
PROC: 3E0P7VZ Introduction of Hormone into Female Reproductive, Via Natural or Artificial Opening (ICD-10-PCS; 2017-04-29)
DX: O61.0 Failed medical induction of labor (principal); O32.4XX0 Maternal care for high head at term, not applicable or unspecified; O33.9 Maternal care for disproportion, unspecified; O98.42 Viral hepatitis complicating childbirth; B19.10 Unspecified viral hepatitis B without hepatic coma; Z3A.39 39 weeks gestation of pregnancy; Z37.0 Single live birth
CPT/HCPCS: 01967; 01968; 36415; 51702; 59025; 85014; 85018; 85027; 86850; 86900; 86901; A9270-GY; J1885; J2270; J2405; J2590; J2704; J2795; J3010; J7120

== ENCOUNTER 2017-12-17 22:40 | Emergency (ER) | payer BC ==
--- NOTE | 2017-12-17 22:48 | EDM.PDOC ---
ED HPI GENERAL MEDICAL PROBLEM - General Chief Complaint: General Stated Complaint: MEDICAL CLEARANCE Time Seen by Provider: 12/17/17 22:46 - History of Present Illness INITIAL COMMENTS - FREE TEXT/NARRATIVE: HISTORY AND PHYSICAL: History of present illness: Patient 27-year-old female presenting calcium law enforcement for medical clearance he has no complaints Review of systems: As per history of present illness and below otherwise all systems reviewed and negative. Past medical history: As per history of present illness and as reviewed below otherwise noncontributory. Surgical history: As per history of present illness and as reviewed below otherwise noncontributory. Social history: No reported history of drug or alcohol abuse. Family history: As per history of present illness and as reviewed below otherwise noncontributory. Physical exam: HEENT: Atraumatic, normocephalic, pupils reactive, negative for conjunctival pallor or scleral icterus, mucous membranes moist, throat clear, neck supple, nontender, trachea midline. Lungs: Clear to auscultation, breath sounds equal bilaterally, chest nontender. Heart: S1S2, regular, negative for clicks, rubs, or JVD. Abdomen: Soft, nondistended, nontender. Negative for masses or hepatosplenomegaly. Negative for costovertebral tenderness. Pelvis: Stable nontender. Genitourinary: Deferred. Rectal: Deferred. Extremities: Atraumatic, negative for cords or calf pain. Neurovascular unremarkable. Neuro: Awake, alert, oriented. Cranial nerves II through XII unremarkable. Cerebellum unremarkable. Motor and sensory unremarkable throughout. Exam nonfocal. Diagnostics: None Therapeutics: None Impression: #1 medically clear for incarceration Definitive disposition and diagnosis as appropriate pending reevaluation and review of above. - Related Data Allergies Allergy/AdvReac Type Severity Reaction Status Date / Time No Known Allergies Allergy Verified 12/22/14 22:08 Home Meds: Home Meds Ibuprofen [Motrin] 800 mg PO Q6H #60 tablet 10/20/15 [Rx] Past Medical History - Past Health History Medical/Surgical History: Denies Medical/Surgical History Cardiovascular History: Reports: Other (See Below) Other Cardiovascular History: heart disease pt does not know what type possible "fast heart rate at times" Other [employer] History: breech, arrives having contractions, will await arrival of planner intern to hear if the plan is to continue with scheduled attempt at version, or to preceed with a C section. - Infectious Disease History Infectious Disease History: Reports: Chicken Pox, Hepatitis B, Mumps Social & Family History - Caffeine Use Caffeine Use: Reports: None ED ROS GENERAL - Review of Systems Review Of Systems: ROS reveals no pertinent complaints other than HPI. ED EXAM, GENERAL - Physical Exam Exam: See Below (See dictation) Departure - Departure Time of Disposition: 22:47 Disposition: Home, Self-Care 01 Condition: Good Clinical Impression: Medical clearance for incarceration - Discharge Information Referrals: PCP,None [Primary Care Provider] - Additional Instructions: The following information is given to patients seen in the emergency department who are being discharged to home. This information is to outline your options for follow-up care. We provide all patients seen in our emergency department with a follow-up referral. The need for follow-up, as well as the timing and circumstances, are variable depending upon the specifics of your emergency department visit. If you don't have a primary care physician on staff, we will provide you with a referral. We always advise you to contact your personal physician following an emergency department visit to inform them of the circumstance of the visit and for follow-up with them and/or the need for any referrals to a consulting specialist. The emergency department will also refer you to a specialist when appropriate. This referral assures that you have the opportunity for followup care with a specialist. All of these measure are taken in an effort to provide you with optimal care, which includes your followup. Under all circumstances we always encourage you to contact your private physician who remains a resource for coordinating your care. When calling for followup care, please make the office aware that this follow-up is from your recent emergency room visit. If for any reason you are refused follow-up, please contact the [facility] emergency department at and asked to speak to the emergency department charge nurse. Follow-up primary medical doctor as needed as discussed return as needed as discussed
[2017-12-17 22:52] VITALS: BP 144/78
== END 2017-12-17 23:10 | disposition home or self-care (01) ==
LOC: MW.ED 22:40
DX: Z02.89 Encounter for other administrative examinations (principal)
CPT/HCPCS: 99282

== ENCOUNTER 2019-06-23 19:03 | Emergency (ER) | payer BC ==
[2019-06-23] MEDS ORDERED: Sodium Chloride 0.9% 10 ML Syringe FLUSH PRN (19:16)
[2019-06-23] MEDS ORDERED: Sodium Chloride 0.9% 2.5 ML Syringe FLUSH PRN (19:16)
[2019-06-23] MEDS ORDERED: LORazepam 2 MG/ML SDV IVPUSH ONE (19:26)
--- NOTE | 2019-06-23 19:32 | EDM.PDOC ---
ED HPI GENERAL MEDICAL PROBLEM - General Chief Complaint: Cardiovascular Problem Stated Complaint: LIGHT HEADED,CHEST PAIN Time Seen by Provider: 06/23/19 19:20 - History of Present Illness INITIAL COMMENTS - FREE TEXT/NARRATIVE: The patient is a 28-year-old female brought into the ER secondary to chest pain. Much of the history was obtained from a family friend who brought her in as the patient's Korean is poor and she appears to be very anxious and is not a very good historian. The patient's friend was also communicating to her bedside through their ely sh[place] language in [place] and communication improved significantly. 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 She then started having chest pains and started to not generally feel well. No recent fevers or chills, no coughing, no vomiting, no abdominal pain, no syncope. He asked her if she wanted to go to the hospital initially she said no but finally she said yes. The patient has had this many times before in [place] and it usually comes on when she is angry but she was not angry this time. She saw a tank builder supervisor in [place] and she was told that she had to watch her blood pressure and she had some stomach problems. She has not been diagnosed with any cardiac problems. She cannot describe the chest discomfort her main complaint is her left hand feels sweaty and she is lightheaded. Left Chest Pain Score (Numeric/FACES): 9 - Related Data Allergies Allergy/AdvReac Type Severity Reaction Status Date / Time No Known Allergies Allergy Verified 12/22/14 22:08 Home Meds: Home Meds Ibuprofen [Motrin] 800 mg PO Q6H #60 tablet 10/20/15 [Rx] Past Medical History - Past Health History Medical/Surgical History: Denies Medical/Surgical History Cardiovascular History: Reports: Other (See Below) Other Cardiovascular History: heart disease pt does not know what type possible "fast heart rate at times" REHAB/PRE VOCATIONAL COUNSELOR History: Reports: Other REHAB/PRE VOCATIONAL COUNSELOR History: breech, arrives having contractions, will await arrival of honing machine set up operator tool to hear if the plan is to continue with scheduled attempt at version, or to preceed with a C section. Musculoskeletal History: Reports: None Neurological History: Reports: None Psychiatric History: Reports: None Endocrine/Metabolic History: Reports: None Hematologic History: Reports: None Immunologic History: Reports: None Oncologic (Cancer) History: Reports: None Dermatologic History: Reports: None - Infectious Disease History Infectious Disease History: Reports: None - Past Surgical History Head Surgeries/Procedures: Reports: None Female Surgical History: Reports: Section Social & Family History - Tobacco Use Smoking Status *Q: Never Smoker - Caffeine Use Caffeine Use: Reports: None - Recreational Drug Use Recreational Drug Use: No ED ROS GENERAL - Review of Systems Review Of Systems: See Below Free Text/Narrative/Comment: Positive for lightheadedness, positive for chest pain, positive for left hand diaphoresis, negative for cough, negative for fevers, negative for syncope, negative for near syncope, all other Positives and pertinent negatives as per HPI. All other pertinent systems were reviewed and are negative ED EXAM, GENERAL - Physical Exam Exam: See Below Free Text/Narrative:: Constitutional: Obese, nontoxic, appears anxious and uncomfortable HEENT.: Normocephalic, PERRL, EOMI, External ears are atraumatic, nares are patent without epistaxis Neck: Normal range of motion, Trachea Midline, No stridor Respiratory.: No respiratory distress, No tachypnea, Lungs Clear to Auscultation bilaterally without wheezes, rales, or rhonchi Cardiovascular.: Regular rate and Rhythm without murmurs, rubs, or gallops, good peripheral perfusion GI: Abdomen soft and non tender, obese Genital Urinary: Deferred Musculoskeletal: Good range of motion. All 4 extremities present and atraumatic , no edema Back: Full Range of Motion Skin: Warm, Dry, Color is ethnicity appropriate, No acute rash. Lymphatic: No lymphadenopathy noted Neurological: Alert, Awake and oriented x 3, No focal deficits noted appreciate , GCS 15 Psych: Not psychotic, appears very anxious Course - Vital Signs Text/Narrative:: This patient is obese but she still is only 28 years old. Multiple considerations are made in this patient which include myocarditis, endocarditis , pericardial effusion, acute coronary syndrome, pulmonary embolism, pulmonary infarction, pneumonia, pneumothorax, others ECG The ECG was read and interpreted by me. There are p waves before every QRS with a ventricular rate of 70. The MS, QRS, and QT intervals are all normal. [place] is normal. ST segments are baseline and the T wave morphology has some nonspecific changes. Final interpretation is a normal Sinus rhythm with nonspecific T wave changes.. Chest x-ray is reviewed and interpreted by me -there are no pulmonary infiltrates, pleural effusions, thoracic masses or any acute pathology Initial lab work was unremarkable and the patient was given some Ativan. Enzymes have resolved and her second troponin is negative. Although the patient does have some nonspecific T wave changes and she is obese , given the entire clinical scenario the patient has a heart score of 1, PERC zero, and everything discussed this patient is low risk and is stable for discharge and outpatient follow-up. Last Recorded V/S: Last Vital Signs Temp 36.4 C 06/23/19 23:21 Pulse 81 06/23/19 23:21 Resp 18 06/23/19 20:15 BP 116/72 06/23/19 23:21 Pulse Ox 100 06/23/19 23:21 - Orders/Labs/Meds Orders: Active Orders 24 hr Category Date Time Status Cardiac Monitoring [RC] . DIRECTED Care 06/23/19 19:16 Active EKG Documentation Completion [RC] STAT Care 06/23/19 19:16 Active Saline Lock Insert [OM.PC] Stat Oth 06/23/19 19:16 Ordered Labs: Laboratory Tests 06/23/19 06/23/19 06/23/19 Range/Units 19:20 19:20 19:20 WBC 6.84 (4.0-11.0) K/uL RBC 4.28 L (4.30-5.90) M/uL Hgb 11.5 L (12.0-16.0) g/dL Hct 35.3 L (36.0-46.0) % MCV 82.5 (80.0-98.0) fL MCH 26.9 L (27.0-32.0) pg MCHC 32.6 (31.0-37.0) g/dL RDW Std Deviation 41.4 (28.0-62.0) fl RDW Coeff of [place] 14 (11.0-15.0) % Plt Count 299 (150-400) K/uL MPV 9.10 (7.40-12.00) fL Neut % (Auto) 42.5 L (48.0-80.0) % Lymph % (Auto) 48.8 H (16.0-40.0) % [place] % (Auto) 7.3 (0.0-15.0) % Eos % (Auto) 1.0 (0.0-7.0) % Baso % (Auto) 0.4 (0.0-1.5) % Neut # (Auto) 2.9 (1.4-5.7) K/uL Lymph # (Auto) 3.3 H (0.6-2.4) K/uL [place] # (Auto) 0.5 (0.0-0.8) K/uL Eos # (Auto) 0.1 (0.0-0.7) K/uL Baso # (Auto) 0.0 (0.0-0.1) K/uL Nucleated RBC % 0.0 /100WBC Nucleated RBCs # 0 K/uL INR 1.04 Sodium 138 (136-145) mmol/L Potassium 2.8 L (3.5-5.1) mmol/L Chloride 101 (98-107) mmol/L Carbon Dioxide 26.5 (21.0-32.0) mmol/L BUN 6 L (7.0-18.0) mg/dL Creatinine 0.9 (0.6-1.0) mg/dL Est Cr Clr Drug Dosing TNP Estimated GFR (MDRD) > 60.0 ml/min Glucose 91 (74-106) mg/dL POC Glucose (60-110) mg/dL Calcium 9.4 (8.5-10.1) mg/dL Total Bilirubin 0.5 (0.2-1.0) mg/dL AST 44 H (15-37) IU/L ALT 61 (14-63) IU/L Alkaline Phosphatase 73 (46-116) U/L Troponin I < 0.050 (0.000-0.056) ng/mL Total Protein 8.5 H (6.4-8.2) g/dL Albumin 4.0 (3.4-5.0) g/dL Globulin 4.5 H (2.6-4.0) g/dL Albumin/Globulin Ratio 0.9 (0.9-1.6) 06/23/19 06/23/19 Range/Units 19:20 21:58 WBC (4.0-11.0) K/uL RBC (4.30-5.90) M/uL Hgb (12.0-16.0) g/dL Hct (36.0-46.0) % MCV (80.0-98.0) fL MCH (27.0-32.0) pg MCHC (31.0-37.0) g/dL RDW Std Deviation (28.0-62.0) fl RDW Coeff of [place]mer (11.0-15.0) % Plt Count (150-400) K/uL MPV (7.40-12.00) fL Neut % (Auto) (48.0-80.0) % Lymph % (Auto) (16.0-40.0) % [place] % (Auto) (0.0-15.0) % Eos % (Auto) (0.0-7.0) % Baso % (Auto) (0.0-1.5) % Neut # (Auto) (1.4-5.7) K/uL Lymph # (Auto) (0.6-2.4) K/uL [place] # (Auto) (0.0-0.8) K/uL Eos # (Auto) (0.0-0.7) K/uL Baso # (Auto) (0.0-0.1) K/uL Nucleated RBC % /100WBC Nucleated RBCs # K/uL INR Sodium (136-145) mmol/L Potassium (3.5-5.1) mmol/L Chloride (98-107) mmol/L Carbon Dioxide (21.0-32.0) mmol/L BUN (7.0-18.0) mg/dL Creatinine (0.6-1.0) mg/dL Est Cr Clr Drug Dosing Estimated GFR (MDRD) ml/min Glucose (74-106) mg/dL POC Glucose 89 (60-110) mg/dL Calcium (8.5-10.1) mg/dL Total Bilirubin (0.2-1.0) mg/dL AST (15-37) IU/L ALT (14-63) IU/L Alkaline Phosphatase (46-116) U/L Troponin I < 0.050 (0.000-0.056) ng/mL Total Protein (6.4-8.2) g/dL Albumin (3.4-5.0) g/dL Globulin (2.6-4.0) g/dL Albumin/Globulin Ratio (0.9-1.6) Meds: Medications Discontinued Medications Generic Name Dose Route Start Last Admin Trade Name Freq PRN Reason Stop Dose Admin Sodium Chloride 1,000 mls @ 999 mls/hr 06/23/19 19:43 06/23/19 19:48 Normal Saline IV 06/23/19 20:43 999 mls/hr .BOLUS ONE Administration Lorazepam 1 mg 06/23/19 19:26 06/23/19 19:48 Ativan IVPUSH 06/23/19 19:27 1 mg ONETIME ONE Administration Sodium Chloride 10 ml 06/23/19 19:16 Saline Flush FLUSH ASDIRECTED PRN Keep Vein Open Sodium Chloride 2.5 ml 06/23/19 19:16 Saline Flush FLUSH ASDIRECTED PRN Keep Vein Open Departure - Departure Time of Disposition: 23:13 Disposition: Home, Self-Care 01 Condition: Good Clinical Impression: Chest pain Instructions: Nonspecific Chest Pain, [id number] Referrals: PCP,Unknown [Primary Care Provider] - Forms: ED Department Discharge Sepsis Event Note - Evaluation Sepsis Screening Result: No Definite Risk - Focused Exam Vital Signs: Vital Signs Temp Pulse Resp BP Pulse Ox 06/23/19 23:21 36.4 C 81 116/72 100 06/23/19 21:03 36.3 C 88 105/68 100 06/23/19 20:15 87 18 112/75 97 06/23/19 19:45 81 22 H 107/65 99 06/23/19 19:15 36.0 C 88 22 H 120/76 100 Date Exam was Performed: 06/24/19 Time Exam was Performed: 03:07 - My Orders Last 24 Hours: My Active Orders 06/23/19 19:16 Cardiac Monitoring [RC] . DIRECTED EKG Documentation Completion [RC] STAT Saline Lock Insert [OM.PC] Stat - Assessment/Plan Last 24 Hours: My Active Orders 06/23/19 19:16 Cardiac Monitoring [RC] . DIRECTED EKG Documentation Completion [RC] STAT Saline Lock Insert [OM.PC] Stat
[2019-06-23] MEDS ORDERED: Sodium Chloride 0.9% 1,000 ML IV ONE (19:43)
--- NOTE | 2019-06-23 19:45 | CR ---
Chest: Portable view of the chest was obtained. Comparison: No previous chest x-ray is available. Heart size and mediastinum are within normal limits for portable technique. Lungs show no acute parenchymal change. Bony structures are grossly intact. Impression: 1. Nothing acute is appreciated on portable chest x-ray. Diagnostic code #1 This report was dictated in [place] Standard Time
[2019-06-23 19:51] LABS: BLOOD UREA NITROGEN,BUN 6 mg/dL (7.0-18.0); CARBON DIOXIDE,CO2 26.5 mmol/L (21.0-32.0); CHLORIDE,CL 101 mmol/L (98-107); GLUCOSE RANDOM 91 mg/dL (74-106); POTASSIUM,K 2.8 mmol/L (3.5-5.1); SODIUM,NA 138 mmol/L (136-145)
[2019-06-23 23:21] VITALS: BP 116/72; PULSE 81
== END 2019-06-23 23:20 | disposition home or self-care (01) ==
LOC: MW.ED 19:03
DX: R07.9 Chest pain, unspecified (principal); R42 Dizziness and giddiness
CPT/HCPCS: 71045; 80053; 82962; 84484; 85025; 85610; 93005; 96360; 96361; 96372; 99285; J2060; J7030; 99283